=== PATIENT | female | born 2000 | race Caucasian/White ===

== ENCOUNTER 2024-07-23 08:31 | Emergency (ER) | payer MEDICAID, SELFPAY ==
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
[2024-07-23 08:35] VITALS: BP 99/67; PULSE 75; RESP 16; TEMP 37.3; O2SAT 98; BMI 19.7
[2024-07-23] MEDS: Ketorolac Tromethamine 30 MG/ML VIAL IM (09:27)
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
--- OUTSIDE RECORDS SUMMARY | 2024-07-23 09:53 | XMS_ITS | Encounter Summary ---
Author Organization [facility] Address [address] [place] [address] Phone Care Team Providers Care Chief Gauger Name Role Phone Amarilys Mitchell MD Primary Care Provider [phone] Encounter Details Date Type Department Care Team (Late st Contact Info) Description 05/05/2009 Documentation [facility] [place] Family Medicine [address] [place], [place] [id number] Family Medicine, Physician [address] [place] [address] Social History Tobacco Use Types Packs/Day Years Used Date Smoking Tobacco: Never Assessed Comments Unknown Sex and Gender Information Value Date Recorded Sex Assigned at Female 12/04/2018 10:39 AM EDT Legal Sex Female 6:22 PM EDT Gender Identity Female 12/04/2018 10:39 AM EDT Sexual Orientation Straight 12/04/2018 10 :39 AM EDT documented as of this encounter Plan of Treatment Not on file documented as of this encounter Visit Diagnoses Not on filedocumented in this encounter Care Teams Chief Gauger Relationship Specialty Start Date End Date Amarilys Mitchell MD [address] [place] [address] PCP - General 07/17/17 04/19/24 documented as of this encounter
--- OUTSIDE RECORDS SUMMARY | 2024-07-23 09:53 | XMS_ITS | Encounter Summary ---
Author Organization [facility] Address [address] [place] [address] Phone Care Team Providers Care Supervisor Felling Bucking Name Role Phone Amarilys Mitchell MD Primary Care Provider [phone] Encounter Details Date Type Department Care Team (Late st Contact Info) Description 04/06/2009 Documentation [facility] [place] Family Medicine [address] [place], [place] [id number] Family Medicine, Physician [address] [place] [address] Social History Tobacco Use Types Packs/Day Years [...] on filedocumented in this encounter Care Teams Supervisor Felling Bucking Relationship Specialty Start Date End Date Amarilys Mitchell MD [address] [place] [address] PCP - General 07/17/17 04/19/24 documented as of this encounter
--- OUTSIDE RECORDS SUMMARY | 2024-07-23 09:53 | XMS_ITS | Encounter Summary ---
Author Organization [facility] Address [address] [place] [address] Phone Care Team Providers Care Ranch Hand Livestock Name Role Phone Amarilys Mitchell MD Primary Care Provider [phone] Reason for Visit * Reason Comments Med Refill Encounter Details Date Type Department Care Team ([facility] st Contact Info) Description 03/21/2020 [facility]ill [facility] [address] [address] Amarilys Mitchell MD [address] [place] [id number] Gastroesophageal reflux disease, unspecified whether esophagitis present Social History Tobacco Use Types Packs/Day Years Used Date Smoking Tobacco: Never Smokeless Tobacco: Never Alcohol Use Standard Drinks/Week Comments Yes 0 (1 standard drink = 0.6 oz pure alcohol) on vacation with parent will have 1-2 fruity drinks, otherwise not drinking Hunger/Food Answer Date Recorded In the last 12 months, did y ou or your family ever eat less than you felt you should because there wasn't enough money for food? No 12/09/2019 Stable Housing Answer Date Recorded Are you worried that in the next 2 months you may not have stable housing? No 12/09/2019 Transportation Concerns Answer Date Rec orded In the last 12 months, have you or your family ever had to go without healthcare because you didn't have a way to get there? No 12/09/2019 Hazards in Home Answer Date Recorded Think about the place you li ve. Do you have problems with any of the following? Pests (mice or roaches), mold, no/not working smoke detectors, water leaks, no window guards. No 2019 Financing Utilities Answer Date Recorde d In the last 12 months, has t he electric, gas, oil, or water company threatened to shut off your services in your home? No 12/09/2019 Safety at Home Answer Date Recorded Are you or your family worried about feeling saf e in your home? No 12/09/2019 Outside Support Answer Date Recorded Do you feel that you need mo re support from other people or programs to help you care for yourself or your family? No 12/09/2019 Understanding Health Concerns Answer Da te Recorded Do you need help understandi ng your or your child's healthcare needs (diagnosis, medications, plan, etc.)? No 12/09/2019 Financing Health Concerns Answer Date R ecorded In the last 12 months, was t here a time when your child needed to see a doctor or get medications or supplies but could not because of cost? No 12/09/2019 Missing School or Work Answer Date Edi rded Did you or your child miss s chool or work because of a health problem that could have been avoided? No 12/09/2019 Comments No Sex and Gender Information Value Date Recorded Sex Assigned at Female 12/04/2018 10:39 AM EDT Legal Sex Female 6:22 PM EDT Gender Identity Female 12/04/2018 10:39 AM EDT Sexual Orientation Straight 12/04/2018 10 :39 AM EDT documented as of this encounter Miscellaneous Notes * Telephone Encounter - Amarilys Mitchell MD - 03/21/2020 11:30 PM EST [facility], patient only needs a 30 day supply at this time. It doesn't need to be a [place] [facility] medication[facility] this [facility]. * Telephone Encounter - Floresita Ricketts MA - 03/21/2020 5:42 PM EST We sent rx earlier today for famotidine 20mg BID Pharm sent back, pt requesting [address] Dr Mitchell, Please send 90 day supply Thank you documented in this encounter Plan of Treatment Not on file documented as of this encounter Visit Diagnoses Diagnosis Gastroesophageal reflux disease, unspecified whether esophagitis present documented in this encounter Care Teams Ranch [employer] Livestock Relationship Specialty Start Date End Date Amarilys Mitchell MD [address] [place] [address] PCP - General 07/17/17 04/19/24 documented as of this encounter
--- OUTSIDE RECORDS SUMMARY | 2024-07-23 09:53 | XMS_ITS | Encounter Summary ---
Author Organization [facility] Address [address] [place] [address] Phone Care Team Providers Care Screen Printing Machine Operator Helper Name Role Phone Amarilys Mitchell MD Primary Care Provider [phone] Encounter Details Date Type Department Care Team (Late st Contact Info) Description 04/14/2009 Documentation [facility] [place] Family Medicine [address] [place], [place] [phone] Family Medicine, Physician [address] [place] [address] Social History Tobacco Use Types Packs/Day Years [...] on filedocumented in this encounter Care Teams Screen Printing Machine Operator Helper Relationship Specialty Start Date End Date Amarilys Mitchell MD [address] [place] [address] PCP - General 07/17/17 04/19/24 documented as of this encounter
--- OUTSIDE RECORDS SUMMARY | 2024-07-23 09:54 | XMS_ITS | Clinical Summary ---
Author Organization [facility] Address [address] [place] [address] Phone Care Team Providers Care Fence Supervisor Name Role Phone Unavailable Primary Care Provider Unavailabl e Allergies No known active allergies Medications polyethylene glycol powder 3 08/11/2018 Activ e Ferrous Sulfate (IRON SUPPLEMENT PO) Take by mouth. Active Norlyda 0.35 MG tabletIndication s:Dysmenorrhea TAKE 1 TABLET(0.35 MG) BY MOUTH DAILY 84 tablet 4 11/20/2019 Active hydrOXYzine 10 MG tabletIndication s:Anxiety Take 1 tablet (10 mg total) by mouth every 8 (eight) hours as needed for anxiety. 45 tablet 03/21/2020 Active Active Problems Problem Noted Date Diagnosed Date Mucocele of maxillary sinus 03/21/2020 Assessment & Plan (03/21/2020 11:46 PM EST): Large retention cyst/mucocele in left maxillary sinus on MRI in [address] Mar 2020. Will refer to ENT for evaluation. I gave patient number and address, but we will call to book appt for her. She requests appt not be on a Saturday. Other headache syndrome 03/21/2020 Assessment & Plan (03/21/2020 11:56 PM EST): Recommend drinking 64 ounces of water a day. She has history of some migraines headaches in the past and what sounds like tension headaches. To keep a log of her headaches. To try ibuprofen for headache and it doesn't help then the next time to trial aleve. To not take aleve and ibuprofen together though since they are from the same drug class. Will have her see neurologist to assess headaches and dizziness. May need to consider controller medication such as amitriptyline for migraines if having them too frequently. Patient to call me with neurologist her mom sees, since she would like to be seen there. Patient requests appt not be on a Saturday. Gastroesophageal reflux disease 03/21/2020 Assessment & Plan (03/21/2020 11:51 PM EST): Will start her on famotidine 20 mg po bid for 2 weeks and if feels better than can use it bid prn sxs. RTC in 2-4 weeks for recheck. To be careful of foods that trigger sxs. Dizziness 03/18/2020 Overview (03/18/2020): 03/16/20 seen in ER. EKG normal. Head CT showed large left retention cyst/mucocele in left maxillary sinus (also seen on MRI in 2018 per ER note). Given migraine cocktail and IVFs. Discharged home with RX for zofran. Assessment & Plan (03/21/2020 11:55 PM EST): Will refer to ENT to determine if this could be caused by an issue with her middle ear. She has noted hearing issue with her right ear over the past month. Will also refer to neurologist for evaluation. Patient to call me with neurologist her mom sees, since she would like to be seen there. Patient requests appt not be on a Saturday. To hydrated well. Have gatorade q day. Change positions slowly. To get her car fixed. Should not be breathing in car exhaust. Other hemorrhoids 07/30/2018 Overview (08/13/2018): 08/11/18 saw [facility]. Hemorrhoid, large sentinel tag, ? granulation tissue. Recommended miralax and proctofoam HC. To f/u in 2 months. Assessment & Plan (12/09/2019 6:47 PM EDT): Patient using miralax 3 times a week and feels she is doing ok at this time. She did not go back to [facility] for follow up. To f/u with Surgery if sxs worsen. Need to keep stools soft. If stools get harder then to increase miralax to q day. Tucks pads prn if needed. Assessment & Plan (12/05/2018 2:09 AM EDT): To continue miralax. To use proctofoam as recommended by [facility]. To f/u with [facility]. (His note said that he wanted to see her back 2 months after the appt in August). I gave patient number to call to schedule appt. Assessment & Plan (07/30/2018 2:50 PM EDT): Has been dealing with this for 2 years per patient. Try TUCKS pads. Will determine if should see GI or Pedi Surgery for treatment. To consider miralax if pain with stooling or if straining with stooling. To not wear thongs. We will arrange appt and notify patient of appt with either Pedi Surgery or GI. Anxiety 12/02/2017 Assessment & Plan (03/22/2020 1:37 AM EST): MINA 7 score 11 moderate anxiety. PHQ9 score 9 mild depression. Recommend that she see a therapist. I notified her that we have a therapist in each of our offices that she could see. I gave her the list of therapists and counseling centers, and I gave her the number for Johanna Lin. Discussed trying a medication to help with anxiety/panic attacks. Will have her trial on hydroxyzine 10 mg q 8 hours prn anxiety attack. Warned her that it may make her tired. Assessment & Plan (12/05/2018 2:00 AM EDT): I notified patient that we have a therapist in our office now that she can see for short term therapy or she can see if there is a counseling center at [facility] to see if can see someone there. Assessment & Plan (12/02/2017 10:28 PM EDT): Recommend that she see a counselor. Recommend that she check at [facility] to see if counseling center on campus where she could see someone. If can't bee seen at school then to seek counseling outside of school, list of counseling centers and counselors given to choose from. Relaxation techniques discussed - relaxing muscles, imagery, and controlled breathing. Acne vulgaris 06/11/2017 Overview (12/01/2017): Derm 06/04/17 for acne started on clindamycin lotion, benzoyl peroxide wash, tretinoin 0.025%, and oral doxycycline. To f/u in 3 months. Assessment & Plan (12/05/2018 2:03 AM EDT): Patient not interested in acne medication. Saw Derm in past. To call if changes her mind. Assessment & Plan (12/02/2017 10:24 PM EDT): Patient using Tasia and Michelle 4 step for acne and she is pleased with the results. Dysmenorrhea 05/27/2017 Assessment & Plan (12/09/2019 6:39 PM EDT): Offered to have her try another OCP, but patient wishes to continue current OCP. To call if changes her mind. Assessment & Plan (12/02/2017 10:25 PM EDT): Continue OCP, needs to be the same brand, ANGELA. Lactose intolerance 11/19/2016 Assessment & Plan (12/09/2019 6:38 PM EDT): Patient has oat milk or almond milk. Assessment & Plan (12/02/2017 10:23 PM EDT): Lactaid. Sleep difficulties 11/19/2016 Assessment & Plan (12/05/2018 1:49 AM EDT): To try melatonin 3 mg, take 1.5 tabs 30-60 mins before bed, if not helping then can increase to 6 mg the next night. To not take more than 10 mg for a dose. Assessment & Plan (12/02/2017 10:31 PM EDT): Recommend no screen time for 1 hour before bed. No caffeine in the afternoon or evening. To trial melatonin 1 mg to max of 5 mg up to one hour before bed time. [id number] spots 11/19/2016 Assessment & Plan (12/09/2019 6:39 PM EDT): 4 cafe au lait spots. Reassurance. Assessment & Plan (12/02/2017 10:23 PM EDT): 3 cafe au laits Irritable colon 07/31/2011 Overview (12/01/2017): abd US 04/06/10 normal, saw GI 06/19 for f/u thought to have irritable bowel syndrome f/u prn. Saw GI Dr. Corral, had labs 05/07/13 (TTG normal, ESR normal). Saw GI 04/24 to f/u in 2-3 mos. Assessment & Plan (12/02/2017 10:26 PM EDT): Doing better since eating healthier. Resolved Problems Problem Noted Date Diagnosed Date Resolved Date Acute left-sided thoracic back pain 12/05/2018 12/09/2019 Assessment & Plan (12/05/2018 2:14 AM EDT): Physical therapy. Ibuprofen q6-8 hours prn pain or naprosyn q 8-12 hours prn pain, take with food. To call if sxs worsen/no improvement. Consider x-ray of thoracic spine if not improving. Total bilirubin, elevated 11/19/2016 Assessment & Plan (02/26/2019 6:44 PM EST): Normal 02/26/19. Assessment & Plan (12/05/2018 1:48 AM EDT): To aura bilirubin. ? [facility]. Discussed. Assessment & Plan (12/02/2017 10:25 PM EDT): Had slightly elevated bilirubin in past and never went for aura. Will order again. Immunizations Immunization Administration Dates Next Due DTaP 06/21/2004, 1,1999,10/23,1999 H1N1 12/28/2008 HPV, Quadrivalent 07/30/2012,10/05/2011,07/30/19 12 Hep A, ped/adol 12/02/2017,11/19/2016 Hep B, ped/adol 04/08/2000,1999,1999 Hib (PRP-T) 11/22/2000, 0,1999,08/23 IPV 06/21/2004, 1,1999,08/23 Influenza, injectable, quadrivalent 11/09,11/01/2011,10/31/2010,12/03,12/09/2008 Influenza, injectable, quadr ivalent, preservative free 12/09/2019,12/04/2018,12/02/2017,11/16,11/11/2014,11/18/2012 MMR 08/06/2003,06/25/2000 Meningococcal Conj (Menactra) MCV4P 11/17/2015,0 07/26/2010 Pneumococcal Conjugate 11/22/2000,2000,1999,10/23 Tdap 07/26/2010 Varicella 09/22/2008,06/25/2000 Family History Medical History Relation Name Comments ADD / ADHD Brother Jovanny No Known Problems Father No Known Problems Maternal Grandfather Breast cancer Maternal Grandmother Cholelithiasis Mother OCD Mother No Known Problems Paternal Grandfather No Known Problems Paternal Grandmother Relation Name Status Comments Brother Jovanny Alive Jakub's syndrom e, deaf in left ear Father Alive healthy, has gl asses Father's Brother Alive 2 Father's Sister Alive 2 Maternal Grandfather Alive Maternal Grandmother Alive Mother Alive healthy, gallst ones, OCD diagnosed with NONPSYCHOT BRAIN SYN NOS Mother's Sister Alive blood clot Other Alive Siblings: Jakub 's syndrome Paternal Grandfather Alive Paternal Grandmother Alive Social History Tobacco Use Types Packs/Day Years [...] Orientation Straight 12/04/2018 10 :39 AM EDT Last Filed Vital Signs Vital Sign Reading Time Taken Comments Blood Pressure 110/66 03/21/2020 5:32 PM EST Pulse 67 03/21/2020 4:00 PM EST Temperature 36.5 ??C (97.7 ??F) 03/14/2020 9:36 AM ES T Respiratory Rate - - Oxygen Saturation 99% 03/21/2020 4:00 PM EST Inhaled Oxygen Concentration - - Weight 62.1 kg (137 lb) 03/21/2020 4:00 PM EST Height 179.1 cm (5' 10.5 ) 12/09/2019 10:10 AM E DT Body Mass Index 19.38 12/09/2019 10:10 AM EDT Plan of Treatment Health Maintenance Due Date Last Done Comments Influenza Vaccines (#1) 2023 02/11/20, 04/19/2020, 12/09/2019, Additional history exists COVID-19 Vaccine ( season) 2023 DTaP,Tdap,and Td Vaccines (8 - Td or Tdap) 05/31/2031 05/30/2021, 07/26/2010, 06/21/2004, Additional history exists Hepatitis B Vaccines Completed 04/08/2000, 1999, 1999 HIB Vaccines Completed 11/22/2000, 12/09, 1999, Additional history exists Pneumococcal Vaccine Completed 11/22/2000, 04/08/2000, 1999, Additional history exists MMR Vaccines Completed 08/06/2003, 06/25/2000 IPV Vaccines Completed 06/21/2004, 03/12, 1999, Additional history exists Varicella Vaccines Completed 09/22/2008, 06/25/2000 HPV Vaccines Completed 07/30/2012, 09/09, 07/30/2011 Meningococcal Vaccine Completed 11/17/2015, 011 Hepatitis A Vaccines Completed 12/02/2017, 11/20/19 17 Men B Vaccine Aged Out No longer elig ible based on patient's age to complete this topic Procedures * Due to [place] state law, this organization might not be sharing sensitive test results. Procedure Name Priority Date/Time Associated Diagnosis Comments CHLAMYDIA AND GONORRHEA, AMPLIFIED Routine 12/09/2019 10:45 AM EDT Encounter for screening examination for sexually transmitted disease from Last 3 Months or Most Recently Relevant to Health Maintenance Results * Due to [place] state law, this organization might not be sharing sensitive test results. * Chlamydia and Gonorrhoea, Amplified (12/09/2019 10:45 AM EDT) Chlamydia Trachomatis, DNA Probe NOT DETECTED (NEG) [facility] Comment:Reference range: NOT DETECTED URINE GC AMP PROBE NOT DETECTED (NEG) [facility] Comment: Reference range: NOT DETECTED (NOTE) The analytical performance characteristics of this assay, when used to test SurePath(TM) specimens have been determined by [facility]. The modifications have not been cleared or approved by the FDA. This assay has been validated pursuant to the CLIA regulations and is used for clinical purposes. = For additional information, please refer to https://education.SocialCom/faq/VDR541 (This link is being provided for information/ educational purposes only.) = Test Performed by: [facility], [address] [place] [address]. [id number]. Environmental Engineering Technician: Brissa Osborne MD. Testing performed or reported by [facility], a Service of [facility], [address] [place] [id number] Hemant Nye MD, Field Research Assistant Urine (Urine) 12/09/2019 10: 45 AM EDT 12/09/2019 6:03 PM EDT us Amarilys Mitchell MD LAB MICROBIOLOGY - GENERAL OR DERABLES Final Result [facility] from Last 3 Months or Most Recently Relevant to Health Maintenance Insurance [facility] [employer] [facility] [employer]
--- OUTSIDE RECORDS SUMMARY | 2024-07-23 09:54 | XMS_ITS | Encounter Summary ---
Author Organization [facility] Address [address] [place] [id number] Phone Care Team Providers Care Mechanical Engineering Draftsperson Name Role Phone Amarilys Mitchell MD Primary Care Provider [phone] Encounter Details Date Type Department Care Team (Late st Contact Info) Description 07/28/2017 Conversion Encounter [facility] [id number] [place] [address] Amarilys Mitchell MD [address] [place] [address] Social History Tobacco Use Types Packs/Day Years [...] on filedocumented in this encounter Care Teams Mechanical Engineering Draftsperson Relationship Specialty Start Date End Date Amarilys Mitchell MD [address] [place] [address] PCP - General 07/17/17 04/19/24 documented as of this encounter
--- OUTSIDE RECORDS SUMMARY | 2024-07-23 09:54 | XMS_ITS | Clinical Summary ---
Author Organization [facility] Address [address] [place] [address] Care Team Providers Care Journeyman Welder Name Role Phone Pcp, No Primary Care Provider Unavailabl e Allergies No known active allergies Medications Norlyda 0.35 MG tablet 11/20/2019 Active Social History Tobacco Use Types Packs/Day Years Used Date Smoking Tobacco: Never Smokeless Tobacco: Never Comments Unknown Sex and Gender Information Value Date Recorded Sex Assigned at Not on file Legal Sex Female 8:19 AM EST Gender Identity Not on file Sexual Orientation Not on file Last Filed Vital Signs Vital Sign Reading Time Taken Comments Blood Pressure 131/80 01/19/2020 8:35 AM EST Pulse 93 01/19/2020 8:35 AM EST Temperature 37.2 ??C (98.9 ??F) 01/19/2020 8:35 AM ES T Respiratory Rate - - Oxygen Saturation 98% 01/19/2020 8:35 AM EST Inhaled Oxygen Concentration - - Weight 63.5 kg (140 lb) 01/19/2020 8:35 AM EST Height 177.8 cm (5' 10 ) 01/19/2020 8:35 AM EST Body Mass Index 20.09 01/19/2020 8:35 AM EST Plan of Treatment Health Maintenance Due Date Last Done Comments Hepatitis C Virus Screening 1999 HIV Screening 06/23/2012 HPV Vaccines (1 - 3-dose series) 06/23/2014 DTaP/Tdap/Td Vaccines (1 - Tdap) 06/23/2018 Hepatitis B Vaccines (1 of 3 - 19+ 3-dose series) 06/23/2018 Pap Smear (Ages 21-65) 06/23/2020 COVID-19 Vaccine (1 - 2023- season) 2023 Influenza Vaccine 10/09/2024 12/09/2019, , 12/02/2017, Additional history exists Pneumococcal Vaccine: Pediatric (0-5 Years) and At-Risk Patients (6 to 49 Years) Aged Out No longer eligible based on patient's age to complete this topic Insurance [facility] Care Teams Journeyman Welder Relationship Specialty Start Date End Date Pcp, No PCP - General General Medicine 01/13/20
--- OUTSIDE RECORDS SUMMARY | 2024-07-23 09:54 | XMS_ITS | Encounter Summary ---
Author Organization [facility] Address [address] [place] [address] Phone Care Team Providers Care Tower Supervisor Name Role Phone Amarilys Mitchell MD Primary Care Provider [phone] Encounter Details Date Type Department Care Team (Late st Contact Info) Description 03/23/[address] [facility] [address] [place], [place] [id number] Family Medicine, Physician [address] [place] [address] Social History Tobacco Use Types Packs/Day Years [...] on filedocumented in this encounter Care Teams Tower Supervisor Relationship Specialty Start Date End Date Amarilys Mitchell MD [address] [place] [address] PCP - General 07/17/17 04/19/24 documented as of this encounter
[2024-07-23 09:59] VITALS: BP 104/58; PULSE 75; RESP 16; O2SAT 100
== END 2024-07-23 10:03 | disposition home or self-care (01) ==
PROVIDERS: Emergency Provider Emergency Medicine
DX: M25.512 Pain in left shoulder (principal); M54.50 Low back pain, unspecified; T14.90XA Injury, unspecified, initial encounter; V43.52XA Car driver injured in collision with other type car in traffic accident, initial encounter; Y93.9 Activity, unspecified; Y92.9 Unspecified place or not applicable; Y99.9 Unspecified external cause status
CPT/HCPCS: 73030; 96372; 99283; 99284; J1885

== ENCOUNTER → 2024-07-23 09:02 | Outpatient (BNV) | payer MEDICAID, SELFPAY | PROVIDERS: Emergency Provider Emergency Medicine; Visit Provider Radiology Diagnostic Radiology | DX: M25.512 Pain in left shoulder (principal); V89.2XXA Person injured in unspecified motor-vehicle accident, traffic, initial encounter | CPT/HCPCS: 73030 ==